=== PATIENT | male | born 1965 | race Caucasian/White ===

== ENCOUNTER 2016-07-12 12:00 | Inpatient (IN) | payer MEDICARE ==
[~2016-07-12] VITALS: Ht 175.3 cm; Wt 96.2 kg
--- NOTE | ~2016-07-12 | OR ---
PATIENT'S NAME: JAN CALIXTO [facility] AGE: 50 Y [address] ROOM: [facility] [place], [place] [address] LOCATION: [facility] ADMIT DATE: 07/12/2016 OR/Procedure Report DISCHARGE DATE: FAMILY PHYSICIAN: CROW DE LA ROSA ATTENDING PHYSICIAN: Gregory Hutchison SURGEON: Gregory Hutchison MD MILK POWDER GRINDER: DATE OF PROCEDURE: 07/12/2016 DIAGNOSIS: Unstable left hip comminuted intertrochanteric fracture. PROCEDURE: Open reduction and internal fixation with locked long TFN nail. ANESTHESIA: General and peripheral nerve block. INDICATION: A 50-year-old gentleman disabled by a paralyzed useless left arm and also chronic low back pain with weakness in his legs, fell last night at home. Simple fall from ground height, no real trauma. Was unable to get up from the floor. Was not having any hip symptoms prior to the fall. At this time, fixation with TFN is indicated. Risks, benefits, and alternatives have been discussed. DESCRIPTION OF PROCEDURE: Mr. Calixto was taken to the operating room. A 2 g of Kefzol was given intravenously for prophylaxis. General anesthetic was administered via endotracheal tube. Transferred to the fracture table. Right leg was placed in the candy cane and protected. Left leg was placed in traction and gently reduced. Fluoroscope confirmed good reduction. Left flank, hip, and thigh were prepared with ChloraPrep and draped sterilely. Fluoroscope was used to identify the axis of the neck and the shaft in both planes. A 4 cm incision was made obliquely above the greater trochanter in line with the femoral canal. Dissection to the iliotibial band. Iliotibial band was divided in line with the femoral canal. Guidewire was driven through the greater trochanter down the shaft. Synthes TFN System was used. Reamer was advanced over the guidewire. A long burton was placed to just above the patella. Reamer was advanced to 14 mm, measured 400 mm. A Synthes TFN left- sided 130-degree 12-mm nail was driven in place. With the fracture reduced, 110 mm helical blade was placed after K-wire and drilling. It was fixed dynamically to allow compression. The bone was noted to be osteoporotic. Distal locking screw was placed in the dynamic slot. Wounds were irrigated. Fluoroscopic images were saved. Iliotibial band was closed with 0 Vicryl simple sutures. Subcutaneous tissues closed with 0 Vicryl, followed by 2-0 Vicryl, followed by gianna. Xeroform was placed over 3 dressings and gauze over the top. Procedure was done without complication. FINDINGS: Intertrochanteric unstable fracture and also osteoporosis. PATIENT'S NAME: JAN CALIXTO [facility] AGE: 50 Y [address] ROOM: [address] [address] LOCATION: [facility] ADMIT DATE: 07/12/2016 OR/Procedure Report DISCHARGE DATE: FAMILY PHYSICIAN: CROW DE LA ROSA ATTENDING PHYSICIAN: Gregory Hutchison To the recovery room in stable condition. In the recovery room, moving both feet. Pulses were stronger in the left foot than what they were preoperatively. Will be protected at bedrest with x-rays pending to clear his low back. GREGORY HUTCHISON MD DPM/koby /[id number] d: 07/12/16 2343 t: 07/17/16 1622, OPERATIVE SUMMARY
--- NOTE | ~2016-07-12 | CON ---
PATIENT'S NAME: JAN CALIXTO [facility] AGE: 50 Y [address] ROOM: [place] [address] LOCATION: [facility] ADMIT DATE: 07/12/2016 Consultation DISCHARGE DATE: FAMILY PHYSICIAN: CROW DE LA ROSA MD ATTENDING PHYSICIAN: Gregory Rangel REFERRING PHYSICIAN: ANTIONETTE NIELSEN MD REQUESTING PHYSICIAN: This is a consult for Dr. Gregory Rangel. HISTORY OF PRESENT ILLNESS: This 50-year-old gentleman is referred for rehabilitation evaluation. He is status post ORIF, left hip comminuted intertrochanteric fracture done on 07/12/[address] Gregory Rangel. Details on record. He is telling me that he lives alone and has a niece that lives close by. However, he is not able to get consistent help. PAST MEDICAL HISTORY: Past history of significance: 1. History of left inguinal hernia repair. 2. Laparoscopic cholecystectomy done on 09/10/2013, details on record. 3. He is with osteoporosis, hypercalciuria. 4. He has history of trauma to the left arm and elbow which left him unable to use the left arm much. 5. He is alert at the present time, oriented, and speech is slow but understandable. PHYSICAL EXAMINATION: VITAL SIGNS: Blood pressure 143/75, temperature 98.1, pulse 95, and respiratory rate 20. He is 5 feet 9 inches tall and weighs 93.7 kg. GENERAL APPEARANCE: He is at the present time weightbearing as tolerated per Ortho. NEUROLOGIC: He is intact. He can control his bowel and bladder. Transfers with minimal assistance of one. MEDICATIONS: He is on the following medications: 1. Flomax. 2. NaCl 0.9%. 3. Zofran. 4. Ferrous sulfate. 5. Diazepam. 6. Lovenox. 7. Fleet Enema p.r.n. 8. Dulcolax p.r.n. PATIENT'S NAME: JAN CALIXTO [facility] AGE: 50 Y [address] ROOM: [place] [address] LOCATION: [facility] ADMIT DATE: 07/12/2016 Consultation DISCHARGE DATE: FAMILY PHYSICIAN: CROW DE LA ROSA MD ATTENDING PHYSICIAN: Gregory Rangel 9. MOM. 10. Benadryl. 11. Ravena. 12. Percocet. 13. MiraLAX. 14. Protonix. 15. Lactinex. 16. Sanctura. 17. Dilaudid. 18. KCl. 19. Vitamin D. 20. Magnesium sulfate. ASSESSMENT AND PLAN: 1. He is able to walk about 5 feet with a danita-walker. 2. He is weightbearing as tolerated with hands-on for safety. 3. I think we will be able to help him to achieve better independence with intensive rehabilitation for about 2 weeks. Please see the orders. 4. I feel that he can benefit from intensive rehabilitation for 2 weeks and then follow up on outpatient basis. All the above was explained to him in detail. He verbalized understanding and agreement with plan of care. MD SUSANA SHERMANS/modl /[id number] d: 07/21/16 1803 t: 07/23/16 0821, CONSULTATION REPORT
--- NOTE | ~2016-07-12 | HP ---
PATIENT'S NAME: JAN CALIXTO [facility] AGE: 50 Y [address] ROOM: [place] [address] LOCATION: [facility] ADMIT DATE: 07/12/2016 History & Physical DISCHARGE DATE: FAMILY PHYSICIAN: CROW DE LA ROSA ATTENDING PHYSICIAN: Gregory Rangel DATE OF SERVICE: CHIEF COMPLAINT: Left hip fracture, fall. HISTORY OF PRESENT ILLNESS: This is a 50-year-old male with history of GERD and no other significant medical history, presents of from [place] after being found to have a fractured left hip. The patient reports that he slipped and fell last night, coming out of the shower at his home and pretty much spent whole night on the floor because he could not get up. He states that he slipped on the mat by the tub. The patient stayed on the floor throughout the night and was found in the morning by family member who helped him to get to the ED in [place] and was found to have a fractured left hip at that time. The patient denies any dizziness, lightheadedness, chest pain, or shortness of either prior to or shortly following the fall. The patient currently complains of moderate amount of pain, rated 6/10. PAST MEDICAL HISTORY: GERD, peripheral neuropathy. FAMILY HISTORY: Has a family history of osteoporosis in the brother. SOCIAL HISTORY: The patient lives at home. Denies any history of alcohol or tobacco use or drugs. REVIEW OF SYSTEMS: 10-point review of systems was conducted and were all negative except as mentioned in the HPI. PHYSICAL EXAMINATION: VITAL SIGNS: Blood pressure 131/71, pulse 92, respiratory rate 17, saturating 97 on room air. GENERAL: The patient is awake, alert, and oriented x3, in mild distress. HEENT: Moist mucous membranes. No scleral icterus or conjunctival pallor noted. HEART: S1, S2. Regular rate and rhythm. PATIENT'S NAME: JAN CALIXTO [facility] AGE: 50 Y [address] ROOM: [address] [address] LOCATION: [facility] ADMIT DATE: 07/12/2016 History & Physical DISCHARGE DATE: FAMILY PHYSICIAN: CROW DE LA ROSA ATTENDING PHYSICIAN: Gregory Rangel LUNGS: Clear to auscultation bilaterally. ABDOMEN: Soft, nontender, nondistended. Positive bowel sounds. NEURO: Grossly nonfocal. SKIN: Bruising noted overlying the abdomen. Baseline EKG done and reviewed. ASSESSMENT AND PLAN: 1. Left hip fracture secondary to mechanical fall. Plan for ORIF later today by Dr. Rangel. The patient overall at moderate risk for perioperative complications, but benefit of surgery outweighs the risk of the procedure. 2. Fall, mechanical. He had been on the floor for a while. We will check CPK level. 3. Gastroesophageal reflux disease. Continue his home PPI therapy. 4. Deep venous thrombosis prophylaxis per Ortho, following surgery. MD JOCEILNE STEWARD/koby /[id number] D: [id number] T: [id number] HISTORY & PHYSICAL
--- NOTE | ~2016-07-12 | DS ---
PATIENT'S NAME: JAN CALIXTO [facility] AGE: 50 Y [address] ROOM: [address] [address] LOCATION: [place] ADMIT DATE: 07/12/2016 Discharge Summary DISCHARGE DATE: 07/23/2016 FAMILY PHYSICIAN: CROW DE LA ROSA MD ATTENDING PHYSICIAN: Gregory Rangel FINAL DIAGNOSES: 1. Postoperative adynamic ileus. 2. Urinary retention. 3. Acute blood loss anemia. 4. Hypokalemia. 5. Left hip fracture, status post open reduction and internal fixation with Dr. Gregory Rangel. 6. Gastroesophageal reflux disease. 7. Left arm weakness secondary to previous trauma. 8. Acute hypoxic respiratory failure. Please see the history and physical dictated by Dr. Gregory Rangel and consultation provided by Dr. Carranza for details of admission. PROCEDURE: On July 12, open reduction and internal fixation with long TFN nail to the left hip fracture. LABORATORY DATA: Sodium on admission was 142, it remained stable at 144 at discharge; potassium on admission was 4.1, got as low as 2.9 on july 19, most prior to discharge was 3.6; chloride on admission was 108, discharge 112; BUN on admission was 16, discharge 6; and creatinine on admission was 1, discharge 0.7. Prealbumin is on admission was 19. Magnesium on July 19 was 1.9, most prior to discharge was 2.1. Albumin on admission was 3.3, most prior to discharge was 2. White blood cell count on admission was 7.6 with a hemoglobin of 11.3, hematocrit 34.8, platelet count 137; most prior to discharge, white blood cell count 4.9, hemoglobin 8.7, hematocrit 26.3, and platelet count 241. MICROBIOLOGY DATA: None. RADIOLOGY DATA: MRI of the lumbar spine on July 13 done for back pain showed chronic degenerative changes, but there was no evidence of acute fracture. Chest x-ray on July 14 showed atelectasis. Abdominal x-ray done on July 15 was suggestive of an ileus, we did see any evidence of obstruction. Spiral-cut PE protocol done on July 15 was negative for any pulmonary embolism. A CT scan of the abdomen and pelvis done on July 18 did confirm nonobstructive adynamic ileus. HOSPITAL COURSE: The patient was admitted by Dr. Rangel with a diagnosis of a hip fracture. Dr. Carranza was asked to see the patient for PATIENT'S NAME: JAN CALIXTO [facility] AGE: 50 Y [address] ROOM: [id number] [place], [place] [address] LOCATION: [place] ADMIT DATE: 07/12/2016 Discharge Summary DISCHARGE DATE: 07/23/2016 FAMILY PHYSICIAN: CROW DE LA ROSA MD ATTENDING PHYSICIAN: Gregory Rangel preoperative evaluation. It was felt that this fracture did need to go to the OR to be surgically stabilized. It was felt that the patient was an adequate candidate to proceed with the surgery. Postoperatively for details of operation, please see Dr. Rangel's operative note. Postoperatively, he was admitted back to the floor. He was given pain medication. He did complain of significant pain, so an MRI of his spine was obtained to rule out foot fracture. The patient was nauseated and had urinary retention, a Walker catheter needed to be placed. He also developed acute hypoxic respiratory failure. Spiral-cut CT scan was done to rule out a pulmonary embolism did return negative. There was concern that he did have an ileus and an x-ray was most consistent with an ileus. Decision was made to make him n.p.o. We did give him Dulcolax suppositories trying to stimulate his bowels. We did let him start having sips which he did tolerate. He, however, failed to have significant bowel movements. A CT scan was done on the to rule out an obstruction, it was negative. We continued to replace his potassium and magnesium as necessary. We continued to let him have clear liquids and continued to stimulate his bowels. For the urinary retention, we did keep a Walker catheter in place. He was able to pass some flatus and the decision was to start his diet and then advance it. Dr. Melgar was asked to see him to see if he is a candidate for rehab. We attempted to remove his Walker catheter, but unfortunately he was unable to void and the catheter needed to be replaced. The patient was felt to be stable for discharge and discharged to inpatient rehab on the . DISCHARGE INSTRUCTIONS: Have PT and OT. Keep his saturations greater than 90%. MEDICATIONS: 1. Dulcolax 10 mg per rectum every 8 hours. 2. Lovenox 30 mg subcu twice daily. 3. Feosol 325 mg twice daily. 4. Lactinex 1 tab daily. 5. Protonix 40 mg daily. 6. MiraLAX 17 g daily. 7. Lyrica 75 mg twice daily. 8. Flomax 0.8 mg at bedtime. 9. Vitamin D 19706 units weekly. 10. [place] 5/325 one every 4 hours as needed for pain. 11. Dulcolax as needed for constipation. 12. Valium 5 mg every 4 hours as needed for muscle spasm. 13. Benadryl 25-50 mg every 6 hours as needed for itching. 14. Milk of magnesia 30 mL as needed for constipation. 15. Fleet enema as needed for constipation. OVERALL PROGNOSIS: At discharge was fair. PATIENT'S NAME: JAN CALIXTO [facility] AGE: 50 Y [address] ROOM: [place] [address] LOCATION: [place] ADMIT DATE: 07/12/2016 Discharge Summary DISCHARGE DATE: 07/23/2016 FAMILY PHYSICIAN: CROW DE LA ROSA MD ATTENDING PHYSICIAN: Gregory Rangel MD KENDY WEINER/koby /[id number] d: 07/24/16 0009 t: 07/31/16 1643, DISCHARGE SUMMARY
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
[2016-07-12] MEDS ORDERED: PRILOSEC20 MG PO (13:47)
[2016-07-12] MEDS ORDERED: MIRALAX PO527 GM/BOT PO (13:48)
[2016-07-12] MEDS ORDERED: TOVIAZ8 MG PO (13:48)
[2016-07-12] MEDS ORDERED: LYRICA 75MG CAP75 MG PO (13:48)
[2016-07-12] MEDS ORDERED: NORCO 5-325 TA1 EACH PO (13:49)
[2016-07-12] MEDS ORDERED: ALEVE220 MG PO (13:49)
[2016-07-12] MEDS ORDERED: PROBIOTIC1 EAC1 PO (13:49)
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
[2016-07-12 15:01] LABS: ALBUMIN 3.3 gm/dL (3.5-5.0); ANION GAP 14.1 (10.0-19.0); BLOOD UREA NITROGEN 16 mg/dL (6-24); CHLORIDE 108 mMol/L (96-110); CO2 24 mMol/L (22-32); ESTIMATED GFR (MDRD EQUATION) > 60; PHOSPHORUS 3.3 mg/dL (2.5-4.9); POTASSIUM 4.1 mMol/L (3.7-5.1); SODIUM 142 mMol/L (135-145)
--- NOTE | 2016-07-12 17:09 | NUR ---
Significant Event:PT IS AAOX3. C/O NUMBNESS AND TINGLING TO LEFT LEG. CLEAR LUNG SOUNDS ON RA ACTIVE BS. LAST BM YESTERDAY. UNABLE TO PLACE LEE. PIV TO R) AC. LR RUNNING AT 125. WENT DOWN FOR SURGERY AT 1505. MULTIPLE SKIN ISSUES. SEE ADMISSION SHEET. Follow up:
--- NOTE | 2016-07-13 04:30 | NUR ---
Significant Event: A/O x3. Complains of N/T to left leg. Moves all extremities spontaneously and to command. Pain with movement to left leg. 1+ pulses palpated in lower extremities bilaterally. LEft leg started shift out cool but by end of shift was warm. VSS on 1L of O2. Walker placed at 2044. IV to right AC saline locked. multiple skin issues. Pain controlled best with valium. Dressing to left hip c/d/i. Has ice resting on it. Follow up:
[2016-07-13 04:46] LABS: BASOPHIL % 0.3 %; EOSINOPHIL % 0.1 %; HEMATOCRIT 34.8 % (37.0-53.0); HEMOGLOBIN 11.3 g/dL (12.0-17.0); IMMATURE GRANULOCYTE # 0.1 K/uL (0.0-0.3); IMMATURE GRANULOCYTE % 0.7 %; LYMPHOCYTE # 1.2 K/uL (0.8-4.0); LYMPHOCYTE % 15.2 %; MCH 29.2 pg (27.0-34.0); MCHC 32.5 gm/dL (32.0-36.5); MCV 89.9 fl (83.0-98.0); MONOCYTE % 12.8 %; MPV 11.5 fl (9.4-12.4); NEUTROPHIL # (ANC) 5.4 K/uL (1.4-9.0); NEUTROPHIL % 70.9 %; NRBC % 0 /100WBC (0-0.00); PLATELET COUNT 137 K/uL (150-450); RBC 3.87 M/uL (4.00-6.00); RDW-CV 13.5 % (11.9-14.6); WBC 7.6 K/uL (4.0-11.0)
--- NOTE | 2016-07-13 15:45 | NUR ---
Significant Event: pt transfer from [facility] at 1220. FX L hip, ORIF done 07/12. Dressing to L hip intact, can be changed PRN. [place] patent, orders to keep loomis for today. Bedrest for now until Claire says otherwise. Had MRI spine this afternoon. CSM checks Q2hr. Saline locks to R fa. PRN [place] at 1308, PNR Valium at 1530. Tolerating regular diet. H/H ordered Q12hr. Follow up: continue to monitor
[2016-07-13 16:44] LABS: HEMATOCRIT 33.7 % (37.0-53.0); HEMOGLOBIN 11.3 g/dL (12.0-17.0)
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
[2016-07-14 04:44] LABS: HEMATOCRIT 32.1 % (37.0-53.0); HEMOGLOBIN 10.4 g/dL (12.0-17.0)
--- NOTE | 2016-07-14 15:29 | NUR ---
Significant Event: PT ALERT AND ORIENTED. UP IN THE RECLINER THIS AFTERNOON WITH 2 ASSIST BY PT. PLEASE USE THE LIFT TO GO BACK TO BED. PT IS SLIGHTLY TACKY AND AM TRYING TO WEAN O2. ENCOURAGE INCENTIVE SPIROMETER. TEMP 99.8 AMD 99.4 TODAY. LEE REMOVED AT 1100. NO VOID YET WILL UPDATE YOU. TAKES NORCO AND VALIUM FOT PAIN. Follow up:
[2016-07-14 16:05] LABS: HEMATOCRIT 33.5 % (37.0-53.0); HEMOGLOBIN 11.1 g/dL (12.0-17.0)
--- NOTE | 2016-07-15 03:32 | NUR ---
Pt A&Ox3. VS stable, placed on 2L O2. CSM and neurochecks intact. Dressing to left hip CDI. Pt nauseated for much of shift, zofran given with relief. No emesis this shift. Diluadid and valium given x1 each for pain control. Pt unable to void after loomis removed, was straight cathed x1 at 0300 per nursing protocol. D5 at 75ml/hr to left AC. Pleasant and cooperative.
[2016-07-15 04:21] LABS: BASOPHIL % 0.4 %; EOSINOPHIL % 0.5 %; HEMATOCRIT 32.3 % (37.0-53.0); HEMOGLOBIN 10.8 g/dL (12.0-17.0); IMMATURE GRANULOCYTE # 0.1 K/uL (0.0-0.3); IMMATURE GRANULOCYTE % 0.7 %; LYMPHOCYTE % 12.5 %; MCH 29.3 pg (27.0-34.0); MCHC 33.4 gm/dL (32.0-36.5); MCV 87.8 fl (83.0-98.0); MONOCYTE # 0.9 K/uL (0.0-1.0); MONOCYTE % 11.6 %; MPV 10.9 fl (9.4-12.4); NEUTROPHIL # (ANC) 5.6 K/uL (1.4-9.0); NEUTROPHIL % 74.3 %; NRBC % 0 /100WBC (0-0.00); PLATELET COUNT 176 K/uL (150-450); RBC 3.68 M/uL (4.00-6.00); RDW-CV 13.5 % (11.9-14.6); WBC 7.6 K/uL (4.0-11.0)
[2016-07-15 04:41] LABS: ALBUMIN 2.5 gm/dL (3.5-5.0); ANION GAP 14.9 (10.0-19.0); BLOOD UREA NITROGEN 17 mg/dL (6-24); CALCIUM 7.8 mg/dL (8.5-10.5); CHLORIDE 102 mMol/L (96-110); CO2 23 mMol/L (22-32); CPK 217 IU/L (35-332); CREATININE 0.9 mg/dL (0.6-1.3); ESTIMATED GFR (MDRD EQUATION) > 60; POTASSIUM 3.9 mMol/L (3.7-5.1); SODIUM 136 mMol/L (135-145)
--- NOTE | 2016-07-15 12:25 | NUR ---
1225 Introduced self/role to patient. He plans to go to either a [facility] or [facility] for some recovery time but thought I better call his sister Criss for location of that rehab. Wrote my name on his marker board. 1330 Called his sister/POA Criss #[phone]. She would prefer [facility] or [facility]. Doctors out of [place] with Dr. Oksana Pat. We talked about the financial piece and co-insurance days after day 20. She will let their brother know because he handles the financial side. 0136 Spoke to patients nurse Doug, patient is WBAT. Co-worker America, in care management, started referral for me to [place].
--- NOTE | 2016-07-15 15:16 | NUR ---
Talked with Rayne, social human services assistants in care management. Pt would like to go to [facility] or [facility] if [facility] can't accept him. Oksana Pat is his primary care provider in [place]. I called [facility] and [facility] Radha [phone] and faxed referral to [phone]. She will let Rayne know if they can accept and who would be following pt at [facility].
--- NOTE | 2016-07-15 19:24 | NUR ---
Significant Event: Alert & oriented. VSS, afebrile, wean to 1 L O2. Refused oral meds due to fear of emesis. Zofran given. No emesis this shift. Walker placed due to retention. Hypoactive bowels, gave suppository, multiple liquid stools. Full lift. Pleasant & cooperative with cares. Follow up: CT done for PE protocol.
--- NOTE | 2016-07-16 04:05 | NUR ---
Significant Event: A/O X 3, FORGETS. IV FLUIDS INFUSING. 02 ON 1L NASAL CANNULA. DRSG LEFT HIP DRY-INTACT DRY DRAINAGE SMALL AMOUNT. ZOFRAN IV FOR NAUSEA 0, WITH RELIEF. LEE CATHETER EMPTIED 550ML URINE. PAIN RATING 5/10. BEEN REPOSITIONED IN BED. ICE BAG TO LEFT HIP. PASSING LITTLE FLATUS. TAKEN ICE CHIPS AND SIPS IN. OCCASIONAL NUMB-TINGLING LEFT LEG. Follow up:
--- NOTE | 2016-07-16 11:00 | NUR ---
1100 Jen from [facility] called. Had a few questions, does not have Sodium Phosphate/Biphos Trospium Cloride in their pharmacy so would need to be changed to an equivalent drug or brought from home. Will keep then updated on possible discharge date. 1215 Spoke to Yary La, patient might be ready the end of week, still ruling out some things. 1220 Left a message for Jen that we are looking at the end of week probably.
--- NOTE | 2016-07-16 12:25 | NUR ---
A-NUTRITION F/U S/P L)HIP FX REPAIR. C/O NAUSEA; IV ZOFRAN GIVEN WITH RELIEF LABS: NA 136, K+ 3.9, GLU 118, BUN 17, STEAM ROOM ATTENDANT 0.9, ALB 2.5 MEDS: ZOFRAN, FEOSOL DIET RX: NPO (LUNCH ON 07/15). TAKING ICE CHIPS AND SIPS WITHOUT DIFF. EST NUTR NEEDS: 0955-6020 KCALS AND 93-112 GM PROTEIN D-AT NUTRITION RISK W/INCREASED PROTEIN NEEDS R/T HEALING AEB L)HIP FX. ALSO AT NUTRITION RISK W/INADEQUATE ORAL INTAKE R/T ALTERED GI FXN AEB N/V. I-WILL START ENSURE CLEAR TID, WHEN DIET ADVANCED M/E-GOAL: PT WILL TOLERATE ORAL DIET 1)F/U DIET RX, GI, AND POC IN 3-4 DAYS 2)ASSIST NEEDED
--- NOTE | 2016-07-16 13:28 | NUR ---
STUDENT NURSE CHART REVIEWED BY FREIGHT REPRESENTATIVE SUSI OTERO RN BSN
--- NOTE | 2016-07-16 18:09 | NUR ---
Significant event: Patient is alert and oriented x3. Is forgetful at times. VSS. On 1 liter of O2 per NC. DRSG to left hip intact with scant amt of serosanguinous drainage. Percocet last given at 1115 amd Valium given at 1400. Is on ice chips and only sips of clears. He has an ileus and is instructed to take it very slow. Has worked with PT today. Is a two assist with walker and gait belt. Cooperative with cares.
--- NOTE | 2016-07-17 02:50 | NUR ---
Significant Event: Patient alert and oriented X4. Up with 2-3 assist or full lift. Neuro checks adequate. Pain controlled with norco and valium. Slept well this shift. Up in chair TID. IV to R) wrist running NS at 70ml/hr. On room air, but orders to keep sats above 90%. Fell on 07/11/16 at home. Can be forgetful. Dressing to L) hip some shadow drainage noted, but not saturated. Was in accident, and L) arm doesn't move well. Numbness and tingling to L) leg. Encourage IS. Vitals stable. Tachy at times. Afebrile. Refused repositioning. Follow up: Monitor pain/dressing
--- NOTE | 2016-07-17 17:55 | NUR ---
Patient is alert and oriented, VSS, on room air. 2-3 assist with walker and GB. Dressings were changed today to island barriers. Clear liquid diet. Wants a suppository until he has a BM, will assist back to bed to give before shift change.
--- NOTE | 2016-07-18 04:24 | NUR ---
Significant Event: Patient alert and oriented X4. Up with 3 heavy assist per report. Did not get up this shift. Reposition as patient allows, refuses at times. Dressing to L) hip intact with shadow drainage on it. Ice to L) hip. On clear liquid diet. Hypoactive BS to L) quadrant and patient reports some rumbling. Q8hour suppository until BM. Pain contolled well with valium last given around 0235. Rested well this shift. Walker patent. IV to R) wrist running NS at 70ml. Estelline given with bedtime meds. Cooperative wtih cares. VSS and on room air. Tachy at times in low 100s. Follow up: Monitor dressing.
[2016-07-18 10:32] LABS: CREATININE 0.7 mg/dL (0.6-1.3); ESTIMATED GFR (MDRD EQUATION) > 60
--- NOTE | 2016-07-18 12:00 | NUR ---
1200 Faxed updates to [facility] #[phone]. 1330 Spoke to patients nurse Maya - does not anticipate a discharge over the weekend.
--- NOTE | 2016-07-18 17:19 | NUR ---
Walker cares completed today by Amy.
--- NOTE | 2016-07-18 17:27 | NUR ---
Patient is alert and oriented, VSS, on room air. 3 assist with walker, or full lift. Up in the chair currently. Is NPO. Had a CT of the abdomen today, results were either a non-obstructive adynamic ileus or a megacolon. Walker is patent with 550ml out. IV to L) wrist infusing 70ml/hr.
--- NOTE | 2016-07-19 03:59 | NUR ---
Significant Event: Patient is alert and oriented x 3. VSS on room air. Up with 3 assist/total lift. Reposition when patient allows, refused at times. Dressings x 3 to left hip are dry and intact. BM x 2 this shift. NPO. Walker intact. 600 mls out this shift. Complains of minimal pain to abdomen. Right wrist IV with NS running at 70 ml/hr. Patient is pleasant and cooperative with cares. Follow up:
[2016-07-19 06:07] LABS: HEMATOCRIT 26.3 % (37.0-53.0); HEMOGLOBIN 8.7 g/dL (12.0-17.0); MCH 29.8 pg (27.0-34.0); MCHC 33.1 gm/dL (32.0-36.5); MCV 90.1 fl (83.0-98.0); MPV 10.4 fl (9.4-12.4); RBC 2.92 M/uL (4.00-6.00); RDW-CV 13.7 % (11.9-14.6); WBC 4.9 K/uL (4.0-11.0)
[2016-07-19 06:17] LABS: PLATELET COUNT 241 K/uL (150-450)
[2016-07-19 06:23] LABS: BLOOD UREA NITROGEN 9 mg/dL (6-24); CALCIUM 7.5 mg/dL (8.5-10.5); CHLORIDE 109 mMol/L (96-110); CO2 24 mMol/L (22-32); CREATININE 0.6 mg/dL (0.6-1.3); ESTIMATED GFR (MDRD EQUATION) > 60; MAGNESIUM 1.9 mg/dL (1.3-2.6); PHOSPHORUS 2.4 mg/dL (2.5-4.9); SODIUM 143 mMol/L (135-145)
[2016-07-19 06:34] LABS: ALBUMIN 1.9 gm/dL (3.5-5.0); ANION GAP 12.9 (10.0-19.0); POTASSIUM 2.9 mMol/L (3.7-5.1)
[2016-07-19 06:53] LABS: ABSOLUTE NEUTROPHIL CT (ANC) 3.4 K/uL (1.4-9.0); BANDED NEUTROPHIL # 0.1 K/uL (0.0-0.1); BANDED NEUTROPHILS % 2 %; LYMPHOCYTE # 0.8 K/uL (0.8-4.0); LYMPHOCYTE % 16 %; MONOCYTE # 0.5 K/uL (0.0-1.0); SEGMENTED NEUTROPHIL # 3.3 K/uL (1.4-9.0); SEGMENTED NEUTROPHIL % 67 %
--- NOTE | 2016-07-19 14:06 | NUR ---
Following patient for CM Rayne today. Phone call from Vee at [facility] wanting an update on patient and potential discharge date. I contacted Vee at [phone] and informed her that patient has a new diagnosis of possible ileus so he will likely be here through the weekend with potential discharge early next week. Rayne is to contact Vee at [facility] on Friday as they are planning on accepting patient. CM will continue to follow.
--- NOTE | 2016-07-19 15:27 | NUR ---
Patient is alert and oriented, VSS, on room air. Up with 2-3 assist or total lift. IV to R) wrist infusing NS at 70ml/hr. Dressing does have some dried blood around the IV site but is not leaking. Dilaudid IV was given x1 this morning before PT and he states it was helpful. He is NPO still. Bowel sounds her tympanic this morning. Slight temp this afternoon at 99.5 but he had a bunch of blankets on, will recheck shortly. Island dressings x3 to the L) hip.
--- NOTE | 2016-07-19 16:14 | NUR ---
A-NUTRITION F/U 07/18 CT RESULTS WERE EITHER A NON-OBSTRUCTIVE ADYNAMIC ILEUS OR MEGACOLON MINIMAL ABD PAIN. NS RUNNING AT 70 ML/HR. (+)BM TODAY LABS: NA 143, K+ 2.9, GLU 86, BUN 9, PHOTOVOLTAIC POWER SYSTEMS ENGINEER 0.6, ALB 1.9 DIET RX: NPO. PRIOR TO NPO PT WAS ON CLEAR LIQUIDS W/ 50-75% INTAKE. EST NUTR NEEDS: 8607-5242 KCALS AND 93-112 GM PROTEIN D-AT NUTRITION RISK W/INADEQUATE NUTRIENT INTAKE R/T ALT. GI FXN AEB NPO STATUS, CT RESULTS. PT ALSO AT NUTRITION RISK W/INCREASED NUTRIENT NEEDS R/T RECENT L)HIP FX. I-IF PO DIET UNABLE TO BE RESUMED, RECOMMEND STARTING PARENTERAL NUTRITION. RECOMMEND 100 ML/HR PPN W/250 ML 20% LIPIDS DAILY. THIS WILL PROVIDE 1724 KCALS AND 102 GM PROTEIN AND MEET 93% OF THE LOW END OF KCAL NEEDS AND 100% OF PROTEIN NEEDS. M/E-GOAL: RESUME PO DIET, IF MEDICALLY INDICATED OR START PARENTERAL NUTRITION IF PO DIET CAN NOT BE RESUMED. 1)F/U GI FXN AND POC IN 2-3 DAYS 2)ASSIST NEEDED
--- NOTE | 2016-07-19 16:40 | NUR ---
IF UNABLE TO RESUME ORAL DIET, CONSIDER PARENTERAL NUTRITION. IF DESIRED, RECOMMEND 100 ML/HR PPN WITH 250 ML 20% LIPIDS DAILY.
--- NOTE | 2016-07-20 04:01 | NUR ---
Patient alert and oriented, very pleasant and cooperative, has three island dressing to the left hip, top dressing changed, dressings are clean dry and intact, is two to three assist with repositioning uses full body lift, had both magnesium and postassium infusions tonight was placed on tele, had 9 beats of SVT EKG done, tele to stay on for now, suspected ileus bowls sound in lower quadrants hypoactive, slightly destended abdomen NPO,
[2016-07-20 05:38] LABS: ANION GAP 15.3 (10.0-19.0); BLOOD UREA NITROGEN 7 mg/dL (6-24); CHLORIDE 111 mMol/L (96-110); CO2 21 mMol/L (22-32); CREATININE 0.6 mg/dL (0.6-1.3); ESTIMATED GFR (MDRD EQUATION) > 60; MAGNESIUM 1.9 mg/dL (1.3-2.6); PHOSPHORUS 2.1 mg/dL (2.5-4.9); POTASSIUM 3.3 mMol/L (3.7-5.1); SODIUM 144 mMol/L (135-145)
[2016-07-20 05:39] LABS: CALCIUM 7.3 mg/dL (8.5-10.5)
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
[2016-07-21 05:53] LABS: BLOOD UREA NITROGEN 6 mg/dL (6-24); CHLORIDE 114 mMol/L (96-110); CO2 22 mMol/L (22-32); CREATININE 0.6 mg/dL (0.6-1.3); ESTIMATED GFR (MDRD EQUATION) > 60; MAGNESIUM 1.9 mg/dL (1.3-2.6); POTASSIUM 3.4 mMol/L (3.7-5.1)
[2016-07-21 05:54] LABS: ALBUMIN 1.9 gm/dL (3.5-5.0); ANION GAP 13.4 (10.0-19.0); CALCIUM 7.3 mg/dL (8.5-10.5); PHOSPHORUS 1.9 mg/dL (2.5-4.9); SODIUM 146 mMol/L (135-145)
--- NOTE | 2016-07-21 07:10 | NUR ---
Significant Event: Pt alert and oriented. Pleasant and cooperative with cares. Has three island dressings cl/dry/intact to left hip. Repositioned q 2 hours. Tolerated 1/2 of clear liq dinner. Pt had large clear liquid bm with lots of gas early in the shift. Pt would like his "pain shot" prior to pysical therapy. Aaron to [facility] Follow up:
--- NOTE | 2016-07-21 15:43 | NUR ---
Significant Event: Drsg to lt hip/thigh D&I. Ice to incisions. up with PT/OT, returned to bed with lift. tele called about 1230 and pt had 8 beats of SVT rates 150's then returned to normal. Had 1 norco at 0755, 1 percocet at 1135 and 1417. Tolerated clears for bkst and lunch, full liquid ordered for supper. Plan to go to [facility]. Follow up:
--- NOTE | 2016-07-22 04:54 | NUR ---
Significant Event: PT alert and oriented. Repositioned q 2 hours. Pt has still not voided since loomis removal. Bladder scanned at 0400 for 420mls, pt does not feel need to void or uncomfortable at this time. Pt has not had a BM on this shift, denied passing flatus. VSS. Follow up: Follow nurse driven loomis removal protocol.
[2016-07-22 05:32] LABS: HEMATOCRIT 27.2 % (37.0-53.0); HEMOGLOBIN 8.8 g/dL (12.0-17.0)
[2016-07-22 05:51] LABS: ANION GAP 10.3 (10.0-19.0); BLOOD UREA NITROGEN 8 mg/dL (6-24); CHLORIDE 110 mMol/L (96-110); CO2 26 mMol/L (22-32); CREATININE 0.6 mg/dL (0.6-1.3); ESTIMATED GFR (MDRD EQUATION) > 60; MAGNESIUM 2.1 mg/dL (1.3-2.6); PHOSPHORUS 2.5 mg/dL (2.5-4.9); POTASSIUM 3.3 mMol/L (3.7-5.1); SODIUM 143 mMol/L (135-145)
[2016-07-22 05:57] LABS: CALCIUM 7.4 mg/dL (8.5-10.5)
--- NOTE | 2016-07-22 09:35 | NUR ---
0935 Vee from [facility] called for an update, will have to call her back. 0955 Spoke to Yary Griffin-LINDA, patient can go to [facility]. 1211 left a message on Vee phone at [facility] that [facility] maybe an possibility. 1300 Spoke to Barbra on [facility]. Plan for admission there Friday at 0900. 1330 Updated Yary Griffin - she stated patient could even go tomorrow. 1335 left a message for Barbra. 1340 Updated patient about going to [facility] tomorrow. 1355 Barbra called back and tomorrow was fine. [address] Dominique. Charge Nurse Yary made aware. 1410 Called patients sister Criss. 1430 Patients nurse Vianey notified. Packet started, orders on the chart.
--- NOTE | 2016-07-22 11:06 | NUR ---
A-NUTRITION F/U (+)BM. 07/20 CLEAR LIQUIDS STARTED; PT TOLERATED WITHOUT DIFF. FULL LIQUIDS STARTED 07/21 AT DINNER; INTAKE WAS 75%. LABS: NA 143, K+ 3.3, GLU 93, BUN 8, OUTCOME ANALYST 0.6, ALB 2.0 NO NEW MEDS DIET RX: FULL LIQUIDS; PO INTAKE IS GOOD. APPEARS TO BE TOLERATING WITHOUT DIFFICULTY EST NUTR. NEEDS: 9130-0612 KCALS AND 93-112 GM PROTEIN D-REMAINS AT NUTRITION RISK W/INADEQUATE NUTRIENT INTAKE R/T ALTERED GI FXN AEB NPO, LIQUID DIET, CT RESULTS. ALSO AT NUTR. RISK W/INCREASED PROTEIN NEED R/T HEALING AEB L)HIP FX AND REPAIR. I-ADD ENSURE ENLIVE TID W/MEALS, TO PROVIDE ADDITIONAL NUTRIENTS. M/E-GOAL: PO INTAKE 50-75% BY NEXT F/U 1)F/U PO INTAKE, DIET RX, SUPPLEMENT, GI, AND POC IN 3-5 DAYS 2)ASSIST NEEDED
--- NOTE | 2016-07-22 17:40 | NUR ---
AAOx3. Cooperative with cares. Up w/2 assist GB, and hemiwalker. Intermittent IV K+ today to R)outer arm IV. Also has RFA PIV s/l'd. Tolerating full liquids ok; going slow. Ice chips. Tympanic bowels, hypo in LLQ. Dressings x3 to L)hip incisions. VSS, afebrile, on RA. Transfer to [facility] @0900 tomorrow (Friday). Straight cathed today for 575ml. Will bladder scan @[address] cath if more than 200ml. To give suppository also. No flatus, no BM.
--- NOTE | 2016-07-23 03:34 | NUR ---
Significant Event: Pt alert and Oirneted x3. Cooperative with cares. turn q2hr. heavey 2 assist. IV in right forarm and right otter elbow SL. RA. Ice to left hip. dressings x3 C/D/I. complaints of abdominal pain denies wanting pain medication. scheduled suppositorys. pt did have 2 loose small BM. Pt unable to void notified loomis placed. 800ml clear yellow urine. pt states relief. VSS. tele did call with HR up to 150's and back down. notified and continue to monitor. pt will go [facility] today at 0900. Follow up:
[2016-07-23 05:42] LABS: ANION GAP 10.6 (10.0-19.0); BLOOD UREA NITROGEN 6 mg/dL (6-24); CALCIUM 7.6 mg/dL (8.5-10.5); CHLORIDE 112 mMol/L (96-110); CO2 25 mMol/L (22-32); CREATININE 0.7 mg/dL (0.6-1.3); ESTIMATED GFR (MDRD EQUATION) > 60; PHOSPHORUS 2.8 mg/dL (2.5-4.9); POTASSIUM 3.6 mMol/L (3.7-5.1); SODIUM 144 mMol/L (135-145)
--- NOTE | 2016-07-23 08:50 | NUR ---
0850 Called [facility], made sure still planning on [facility] today at 0900? Nursing said yes, working on the paperwork.
--- NOTE | 2016-07-23 12:27 | NUR ---
PT. A/O AND COOPERATIVE. DENIES PAIN. THREE DRESSING SITES LEFT HIP D/I. RIGHT INNER ARM IV D/C'D PER TRANSFER. RIGHT LATERAL FA IV S/L LEFT FOR TRANSFER. TRANSFERRED TO WHEELCHAIR WITH TWO ASSIST AND WALKER. MOVES LEFT FOOT POORLY AND HOPS TO MOVE. ATE BREAKFAST WELL. NO STOOLS THIS MORNING. LEE DRAINING CLEAR HIMANSHU URINE. ON FULL LIQUID DIET. NO PAIN MEDS GIVEN.
== END 2016-07-23 10:20 | disposition disaster alternative care site (69) | DRG 956 ==
LOC: GMSU 12:33 → GNTU 12:33 → GMSU 07-13 12:15
PROVIDERS: Internal Medicine; Physician Assistant; Student in an Organized Health Care Education/Training Program; ADMIT Orthopaedic Surgery
PROC: 0QS736Z Reposition Left Upper Femur with Intramedullary Internal Fixation Device, Percutaneous Approach (ICD-10-PCS; principal; 2016-07-12)
DX: S72.142A Displaced intertrochanteric fracture of left femur, initial encounter for closed fracture (principal); T79.6XXA Traumatic ischemia of muscle, initial encounter; J96.01 Acute respiratory failure with hypoxia; G81.94 Hemiplegia, unspecified affecting left nondominant side; D62 Acute posthemorrhagic anemia; K91.3 Postprocedural intestinal obstruction; M81.0 Age-related osteoporosis without current pathological fracture; E83.52 Hypercalcemia; G62.9 Polyneuropathy, unspecified; W19.XXXA Unspecified fall, initial encounter; K21.9 Gastro-esophageal reflux disease without esophagitis; M54.9 Dorsalgia, unspecified; G89.29 Other chronic pain; R33.9 Retention of urine, unspecified; R00.0 Tachycardia, unspecified; E87.6 Hypokalemia; E55.9 Vitamin D deficiency, unspecified; Z82.49 Family history of ischemic heart disease and other diseases of the circulatory system
CPT/HCPCS: C1713; J0690; J1170; J1650; J2001; J2175; J2250; J2405; J3010; J3360; J3475; J3480; J7030; J7050; J7060; J7120; Q0162; Q9967

== ENCOUNTER 2016-07-23 10:21 | Inpatient (IN) | payer MEDICARE ==
[~2016-07-23] VITALS: Ht 175.3 cm; Wt 93.8 kg
--- NOTE | ~2016-07-23 | DS ---
PATIENT'S NAME: JAN CALIXTO [facility] AGE: 50 Y [address] ROOM: [address] [place], [place] [address] LOCATION: [facility] ADMIT DATE: 07/23/2016 Discharge Summary DISCHARGE DATE: 08/09/2016 FAMILY PHYSICIAN: CROW DE LA ROSA MD ATTENDING PHYSICIAN: Rubén Gomez This 50-year-old gentleman was admitted to rehab unit at [facility] on 07/23/2016, is discharged to [place], [place] on 08/09/2016. He was admitted with unstable gait, dependent activities of daily and self- care status post left hip fracture intertrochanteric, status post ORIF done on 07/12/2016. Details on record. He is at the present time alert and oriented. Vitals are as follows. Blood pressure 113/62, temperature 98.2, pulse 84, and respirations 16. He can ambulate with platform wheeled walker for 80 feet x1 with standby [employer] assistant manager. He is to continue with PT/OT on a regular basis while there and I will see him in [address] Obed Rangel will see him as he sees fit. He must follow with his family physician as soon as possible. He is on the following medications: 1. Lactinex 1 tablet p.o. daily. 2. Claritin 10 mg p.o. daily. 3. Protonix 40 mg p.o. at 7 a.m. 4. MiraLax 17 grams rectally as needed. 5. Lyrica 75 mg p.o. daily. 6. Xarelto 15 mg daily through 08/15/2016 and thereafter Xarelto 20 mg for another 6 weeks. 7. Flomax, depending on the family physician's decision. 8. Flomax 0.8 mg p.o. daily. 9. Vitamin D 50,000 unit capsule on Friday. 10. Tylenol 650 q.6 hours, 36 of them. Do not exceed acetaminophen 4 grams q.24 hours. 11. Dulcolax suppository 10 mg rectally q.12 hours as needed. 12. Tums 1000 mg q.4 to 6 hours as needed. 13. Valium 5 mg p.o. q.4 hours, 36 and renewal per family physician. 14. Benadryl 25 to 50 mg p.o. q.6 hours as needed. 15. MOM 30 mL as needed p.o. 16. Fleet enema 133 mL as needed. PATIENT'S NAME: JAN CALIXTO [facility] AGE: 50 Y [address] ROOM: [place] [address] LOCATION: [facility] ADMIT DATE: 07/23/2016 Discharge Summary DISCHARGE DATE: 08/09/2016 FAMILY PHYSICIAN: CROW DE LA ROSA MD ATTENDING PHYSICIAN: Rubén Gomez FINAL DIAGNOSES: 1. Unstable gait. 2. Dependent activities and self-care. 3. Status post open reduction and internal fixation of the left hip on 07/12/2016 secondary to a falling incident. 4. Benign prostatic hypertrophy. 5. Gastroesophageal reflux disease. 6. Anemia. 7. Osteoporosis. 8. At the risk of deep venous thrombosis, he has superficial femoral vein thrombosis left side and is on treatment for the time being and will continue on Xarelto. 9. Allergic rhinitis. The patient is not to drive until he is reevaluated and all the above was explained to him in detail. He verbalized understanding and in agreement with plan of care. RUBÉN GOMEZ MD WMS/modl /[id number] d: 08/09/166 t: 08/10/16 0925, DISCHARGE SUMMARY
--- NOTE | ~2016-07-23 | CON ---
PATIENT'S NAME: JAN CALIXTO [facility] AGE: 50 Y [address] ROOM: [address] [place], [place] [address] LOCATION: [facility] ADMIT DATE: 07/23/2016 Consultation DISCHARGE DATE: FAMILY PHYSICIAN: CROW DE LA ROSA MD ATTENDING PHYSICIAN: Rubén Gomez DATE OF CONSULTATION: 07/30/2016 REFERRING PHYSICIAN: Gregory Rangel MD Team members reporting include Dr. Gomez; Barbra Marcano, social media strategist; Vani Dixon RN; Indira Aparicio, PT; Marcela Swain, OT; Radha Pedroza, therapeutic rec; Sister Esthela Milton, Pastoral Care. CURRENT STATUS: Jan is a 50-year-old man admitted to our inpatient rehab unit on July 23, 2016, following a fractured left hip. The patient does have incisions and bruising, taking [place] for pain. He is on a regular diet for supper this evening as the patient has been on a full liquid diet due to his ileus prior to this. The patient's prealbumin is 17. He can transfer sit to supine at minimal assistance; sit to stand and stand to sit, minimal assistance; and bed to chair and chair to bed, contact guard assistance. He can walk 60 feet with a platform front-wheeled walker. He complains of a lot of distal knee pain. Stairs have not been done yet for safety. Goals will be set for standby assistance to mod I. He has met 2/4 short-term PT goals. The patient can dress his upper body at standby; lower body, moderate assistance using adaptive equipment; grooming, standby; bathing, minimal assistance; toilet and shower transfers, minimal assistance; toileting, dependent; and feeding, standby. His endurance overall is improving. He has met 2/4 short-term OT goals. Car transfers have not been done yet, but we will do by the end of the week. The patient has been very open to pastoral care. DISCHARGE PLAN: The patient is receiving 3 hours of PT and OT Friday through Friday. The patient has daily rehab, nursing, and physiatry involvement as well as therapeutic recreational services 4 days per week. The patient has shown functional improvement and is progressing. Please see his plan of care for specific goals. Plan is for the patient to discharge in approximately 2 weeks. The patient's goal is to be able to return to home, but if not, he is willing to go to [facility]. BARBRA MARCANO FOR RUBÉN GOMEZ MD PATIENT'S NAME: JAN CALIXTO [facility] AGE: 50 Y [address] ROOM: [address] [place] [address] LOCATION: [facility] ADMIT DATE: 07/23/2016 Consultation DISCHARGE DATE: FAMILY PHYSICIAN: CROW DE LA ROSA MD ATTENDING PHYSICIAN: Rubén Gomez TD/modl /[id number] d: 07/31/161809 t: 08/13/16 0834, CONSULTATION REPORT
--- NOTE | ~2016-07-23 | HP ---
PATIENT'S NAME: JAN CALIXTO [facility] AGE: 50 Y [address] ROOM: [address] [place], [place] [address] LOCATION: [facility] ADMIT DATE: 07/23/2016 History & Physical DISCHARGE DATE: FAMILY PHYSICIAN: CROW DE LA ROSA MD ATTENDING PHYSICIAN: Rubén oGmez DATE OF SERVICE: This 50-year-old gentleman is admitted for continuous medical treatment and intensive rehabilitation to rehab unit at [facility], [place], [place], on 07/23/2016. 1. Unstable gait. 2. Dependent on activities of daily and self-care. 3. At high risk of falling. 4. Status post ORIF left hip, intertrochanteric fracture done on 07/12/2016, details on record. He is at the present time intended to intensive rehabilitation, PT/OT 3 hours per day, 15 hours per week for about 10-14 days, aiming to discharge with modified independence and follow on outpatient basis. He is at the present time alert, oriented. Vitals: Blood pressure 109/56, temperature 99.3 to 98.0, pulse 95, respiration rate 14. He is 5 feet 9 inches tall and weighs 96.2 kg. ALLERGIES: HE IS ALLERGIC TO NONSTEROIDAL AND ANTIINFLAMMATORY MEDICATION, AND PSEUDOEPHEDRINE AND NAPROXEN. AT THE PRESENT TIME, HE IS ABLE TO FOLLOW INSTRUCTIONS. HE IS ON THE FOLLOWING MEDICATIONS. 1. DULCOLAX SUPPOSITORY 10 MG RECTALLY Q.8 HOURS NEEDED. 2. LOVENOX 30 MG SUBCU B.I.D. 3. FEOSOL 325 MG TWICE DAILY P.O. 4. LACTINEX OR FLORANEX ONE TABLET EVERY DAY. 5. PROTONIX 40 MG P.O. DAILY. 6. MIRALAX 17 G P.O. NEEDED. 7. LYRICA 75 MG P.O. DAILY. 8. FLOMAX 0.8 MG P.O. AT BEDTIME. 9. VITAMIN D 89434 UNITS P.O. DAILY FOR 8 WEEKS. 10. NORCO 5/325 Q.4 HOURS ONE TABLET NEEDED, DO NOT EXCEED ACETAMINOPHEN 4 G Q.24 HOURS. 11. DULCOLAX SUPPOSITORY 10 MG RECTALLY NEEDED P.R.N. PATIENT'S NAME: JAN CALIXTO [facility] AGE: 50 Y [address] ROOM: [address] [place], [place] [address] LOCATION: [facility] ADMIT DATE: 07/23/2016 History & Physical DISCHARGE DATE: FAMILY PHYSICIAN: CROW DE LA ROSA MD ATTENDING PHYSICIAN: Rubén Gomez 12. VALIUM 5 MG Q.4 HOURS NEEDED P.R.N. 13. BENADRYL 25 TO 50 MG P.O. Q.6 HOURS NEEDED P.R.N. 14. MOM 30 ML NEEDED P.R.N. 15. FLEET ENEMA 133 RECTALLY NEEDED. PAST HISTORY OF SIGNIFICANCE FOLLOWS. 1. HISTORY OF ANEMIA. 2. REFLUX GASTRIC DISEASE. 3. HISTORY OF CHOLECYSTECTOMY. 4. INGUINAL HERNIA REPAIR. 5. NEUROPATHY. 6. OSTEOPOROSIS. 7. BENIGN PROSTATIC HYPERTROPHY. 8. 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 AT THE PRESENT TIME, WE WILL PUT ON INTENSIVE PT/OT, 3 HOURS PER DAY, 15 HOURS PER WEEK FOR ABOUT 2 WEEKS, AIMING TO DISCHARGE MODIFIED INDEPENDENCE AND FOLLOW ON OUTPATIENT BASIS. WE WILL SEND IN A.M. FOR URINALYSIS WITH REFLEX MICROSCOPY. CBC WITH AUTOMATED DIFFERENTIAL. CMS. PREALBUMIN. AT THE PRESENT TIME, WE WILL KEEP ON DR. Sofi HUTCHISON AND HOSPITALIST TO FOLLOW NECESSARY. HE IS WEIGHTBEARING TOLERATED WITH HELP. ALL THE ABOVE WAS EXPLAINED TO HIM IN DETAIL. HE VERBALIZED UNDERSTANDING AND AGREEMENT WITH PLAN OF CARE. RUBÉN GOMEZ MD WMS/modl /[id number] D: T: HISTORY & PHYSICAL
--- NOTE | ~2016-07-23 | CON ---
PATIENT'S NAME: JAN CALIXTO [facility] AGE: 50 Y [address] ROOM: G3296 [place], [place] [address] LOCATION: [facility] ADMIT DATE: 07/23/2016 Consultation DISCHARGE DATE: FAMILY PHYSICIAN: CROW DE LA ROSA MD ATTENDING PHYSICIAN: Rubén Gomez DATE OF CONSULTATION: 07/23/2016 REFERRING PHYSICIAN: Gregory Rangel MD Team members reporting include Dr. Gomez; Barbra Marcano, social security specialist; Vani Dixon RN; Indira Aparicio, PT; Myranda Graham, PT; Marcela Swain, OT; Radha Pedroza, therapeutic rec; Sister Esthela Milton, Pastoral Care; and Jen Conti, pharmacist. CURRENT STATUS: Jan is a 50-year-old man, who admitted to our inpatient rehab unit on July 23, 2016. The patient had fallen at home when getting out of the shower and he did fracture his left hip. The patient did have open reduction and internal fixation of that. He has a history of postoperative adynamic ileus, urinary retention, acute blood loss anemia, hypokalemia, gastroesophageal reflux disease, left arm weakness secondary to a previous trauma, and acute hypoxic respiratory failure. The patient is incontinent of bowel at times. He has a Walker catheter. He has calluses on his left hand. He has some floor haider. An incision on his left hip. The patient can transfer sit to supine and supine to sit, dependent. Sit to stand, mod assistance. Bed to chair, minimal to dependent. He can ambulate with a danita-walker. Weightbearing as tolerated. He is very antalgic and swollen. He has limited range of motion overall. Stairs have not been done yet for safety. The patient can complete toilet transfers at minimal to moderate assistance. Complains of lots of pain in his left leg. Pastoral Care and therapeutic rec will be seeing the patient. Pharmacy has no concerns. DISCHARGE PLAN: The patient is receiving 3 hours of PT and OT Friday through Friday. The patient has daily rehab, nursing, and physiatry involvement as well as therapeutic recreational services 4 days per week. The patient has shown functional improvement and is progressing. Please see his plan of care for specific goals. Plan is for the patient to discharge in approximately 3 weeks. The patient's goal is to return to home and if not able to return to home, would consider going to the [facility] Swing Bed. BARBRA MARCANO FOR RUBÉN GOMEZ MD PATIENT'S NAME: JAN CALIXTO [facility] AGE: 50 Y [address] ROOM: [place] [address] LOCATION: [facility] ADMIT DATE: 07/23/2016 Consultation DISCHARGE DATE: FAMILY PHYSICIAN: CROW DE LA ROSA MD ATTENDING PHYSICIAN: Rubén Gomez TD/modl /[id number] d: 07/31/161809 t: 08/13/16 0837, CONSULTATION REPORT
--- NOTE | ~2016-07-23 | ENPV ---
Vascular Lower Extremities DVT Study Procedure Demographics Patient Name JAN CALIXTO Date of Study 07/25/2016 Patient Number [id number] Gender Male Date of 1965 Age 50 Visit Number [id number] Height Accession Number [id number] Weight Room Number G3296 BSA BMI Referring Rubén Melgar Interpreting Carlos Dumont MD Physician Physician Physician Ordering Physician Carlos Dumont MD Ct Tech Automation Control Technician Diana Laguna [facility], T Conclusions Summary There is acute deep vein thrombosis in the right proximal femoral vein. Procedure Type of Study: Veins:Lower Extremities DVT Study, Lower Extremity Left. Indications for Study:Swelling of Limb and Unilateral edema. Appropriate Use Criteria:9 Patient Status:Routine. Study Location:Inpatient Portable. Technical Quality:Adequate visualization. - Preliminary reported to:Dr. Melgar @ [id number]. Velocities are measured in cm/s ; Diameters are measured in cm Right Lower Extremities DVT Study Measurements Right 2D and Doppler Measurements + + + + +------+------+ + !Location !Visualized!Compressibility!Thrombosis!Signal!Reflux!Reflux ! ! ! ! ! ! ! !(sec) ! + + + + +------+------+ + !Common !Yes !Yes !None !Phasic! ! ! !Femoral ! ! ! ! ! ! ! + + + + +------+------+ + Left Lower Extremities DVT Study Measurements Left 2D and Doppler Measurements + + + + +------+------+ + !Location !Visualized!Compressibility!Thrombosis!Signal!Reflux!Reflux ! ! ! ! ! ! ! !(sec) ! + + + + +------+------+ + !GSV Thigh !Yes !Yes !None !Phasic! ! ! + + + + +------+------+ + !Common !Yes !Yes !None !Phasic! ! ! !Femoral ! ! ! ! ! ! ! + + + + +------+------+ + !Prox !No !No !Acute !Absent! ! ! !Femoral ! ! ! ! ! ! ! + + + + +------+------+ + !Mid Femoral!Yes !Yes !None !Phasic! ! ! + + + + +------+------+ + !Dist !Yes !Yes !None !Phasic! ! ! !Femoral ! ! ! ! ! ! ! + + + + +------+------+ + !Popliteal !Yes !Yes !None !Phasic! ! ! + + + + +------+------+ + !Gastroc !Yes !Yes !None ! ! ! ! + + + + +------+------+ + !PTV !Yes !Yes !None ! ! ! ! + + + + +------+------+ + !Peroneal !Yes !Yes !None ! ! ! ! + + + + +------+------+ + Signature dtt: SANJU FREIRE dtdanish: 07/25/16 1431 Physician Self Edit
--- NOTE | ~2016-07-23 | CON ---
PATIENT'S NAME: JAN CALITXO [facility] AGE: 50 Y [address] ROOM: G3297 [place], [place] [address] LOCATION: [facility] ADMIT DATE: 07/23/2016 Consultation DISCHARGE DATE: 08/09/2016 FAMILY PHYSICIAN: CROW DE LA ROSA MD ATTENDING PHYSICIAN: Rubén Gomez DATE OF CONSULTATION: 08/06/2016 REFERRING PHYSICIAN: Gregory Rangel MD Team members reporting include Dr. Gomez; Barbra Marcano, renal social worker; Vani Dixon RN; Indira Aparicio, PT; Marcela Davenport, OT; Radha Pedroza, therapeutic rec; and Sister Esthela Milton, Pastoral Care. CURRENT STATUS: Jan is a 50-year-old man, admitted to our inpatient rehab unit on July 23, 2016, following a left femur fracture. The patient is continent of bowel and bladder. He does have a right chest abrasion and some incisions. The patient does take [place] for pain with occasional Valium for pain. He can complete all of his transfers at contact guard assistance to minimal assistance. He has met 3/4 short-term PT goals. He can walk 120 feet with a platform front wheeled walker at standby assistance. He can climb stairs; minimal assistance going down, contact guard assistance going up. The patient can complete upper body dressing at standby; lower body dressing, minimal assistance; grooming, independent; self feeding, standby; home management tasks, moderate assistance. He has met 2/4 short-term OT goals and 2/13 long-term OT goals. The patient can complete car transfers at contact guard assistance with step- by-step cuing. The patient has been very open to pastoral care. DISCHARGE PLAN: The patient is receiving 3 hours of PT and OT Friday through Friday. The patient has daily rehab, nursing, and physiatry involvement as well as therapeutic recreational services 4 times per week. The patient has shown functional improvement and is progressing. Please see his plan of care for specific goals. Plan is for the patient to discharge on August 09, 2016. The patient is going to the [facility] Swing Bed to continue his therapy in order to return to home. BARBRA MARCANO FOR RUBÉN GOMEZ MD TD/modl PATIENT'S NAME: JAN CALIXTO [facility] AGE: 50 Y [address] ROOM: [place] [address] LOCATION: [facility] ADMIT DATE: 07/23/2016 Consultation DISCHARGE DATE: 08/09/2016 FAMILY PHYSICIAN: CROW DE LA ROSA MD ATTENDING PHYSICIAN: Rubén Gomez /[id number] d: t: 08/16/16 1854, CONSULTATION REPORT
[~2016-07-23 10:21] MED LIST: ALEVE220 MG PO; LYRICA 75MG CAP75 MG PO; MIRALAX PO527 GM/BOT PO; NORCO 5-325 TA1 EACH PO; PRILOSEC20 MG PO; PROBIOTIC1 EAC1 PO; TOVIAZ8 MG PO
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
--- NOTE | 2016-07-24 04:39 | NUR ---
A/O x 3. Pleasant. Cooperative. 1-2 assist dainta walker pivot to w/c. Walker patent/intact with hong urine. Up watching TV until 2300. Medication taken withouth difficulty. No c/o's. Rested well. Pull up's on at HS.
[2016-07-24 05:38] LABS: HEMATOCRIT 27.5 % (37.0-53.0); HEMOGLOBIN 8.5 g/dL (12.0-17.0); MCH 28.2 pg (27.0-34.0); MCHC 30.9 gm/dL (32.0-36.5); MCV 91.4 fl (83.0-98.0); MPV 10.1 fl (9.4-12.4); RBC 3.01 M/uL (4.00-6.00); RDW-CV 15.4 % (11.9-14.6); WBC 4.5 K/uL (4.0-11.0)
[2016-07-24 05:42] LABS: PLATELET COUNT 398 K/uL (150-450)
[2016-07-24 06:00] LABS: ALK PHOS 106 IU/L (33-138); ALT 28 IU/L (12-78); ANION GAP 13.7 (10.0-19.0); AST 29 IU/L (10-40); BLOOD UREA NITROGEN 7 mg/dL (6-24); CALCIUM 7.6 mg/dL (8.5-10.5); CHLORIDE 110 mMol/L (96-110); CO2 26 mMol/L (22-32); CREATININE 0.8 mg/dL (0.6-1.3); ESTIMATED GFR (MDRD EQUATION) > 60; POTASSIUM 3.7 mMol/L (3.7-5.1); TOTAL BILIRUBIN 0.5 mg/dL (0.0-1.5); TOTAL PROTEIN 5.2 g/dL (6.0-8.4)
[2016-07-24 06:01] LABS: SODIUM 146 mMol/L (135-145)
[2016-07-24 06:16] LABS: ABSOLUTE NEUTROPHIL CT (ANC) 2.7 K/uL (1.4-9.0); BANDED NEUTROPHIL # 0.1 K/uL (0.0-0.1); BANDED NEUTROPHILS % 2 %; LYMPHOCYTE # 0.9 K/uL (0.8-4.0); LYMPHOCYTE % 21 %; MONOCYTE # 0.5 K/uL (0.0-1.0); SEGMENTED NEUTROPHIL # 2.6 K/uL (1.4-9.0); SEGMENTED NEUTROPHIL % 58 %
--- NOTE | 2016-07-24 09:16 | NUR ---
When therapy was giving pt his shower, he started to feel light headed, she alerted staff. Pt assisted to wheel chair with 3 staff, pt was stable on feet. Therapist took BP before transfer 105/62 96.4-108-16, pt pale in color, maintained conscious and talking. Pt assisted to wheel chair with assist, sat in wheel chair for approxl 15 min. drank apple juice and took am meds. 0850 BP 85/60, pt assisted to bed with 2 assist, reports would rest awhile and then try to eat some breakfast. 0910 BP 87/68, resting in bed quietly.
[2016-07-24 09:28] LABS: BILIRUBIN URINE NEGATIVE (NEGATIVE); BLOOD URINE 50 /UL (NEGATIVE); COLOR URINE YELLOW (YELLOW); GLUCOSE URINE NEGATIVE (NEGATIVE); KETONE URINE NEGATIVE (NEGATIVE); LEUKOCYTES URINE 100 /UL (NEGATIVE); NITRITE URINE NEGATIVE (NEGATIVE); PROTEIN URINE 15 mg/dL (NEGATIVE); SPEC GRAVITY URINE 1.025 (1.003-1.035); TURBIDITY URINE CLEAR (CLEAR); UROBILINOGEN URINE 8 mg/dL (NORMAL)
[2016-07-24 09:40] LABS: BACTERIA URINE MANY (NEGATIVE); EPITHELIAL URINE RARE #/HPF (NEGATIVE); MUCUS URINE 4+ (NEGATIVE)
[2016-07-24 09:42] LABS: CRYSTALS URINE CALCIUM OXALATE (NEGATIVE)
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
--- NOTE | 2016-07-25 01:49 | NUR ---
Significant Event: Alert & oriented. Pleasant & cooperative. [place] drains clear hong urine. Rt elbow IV flushes well but no blood return. Was reinforced with tape. Has ice to lt hip. Dressing intact. Wears calf pumps. He is a 1-2 assist pivot with danita walker. COntinues on full liquid diet Suppository given this evening as ordered and pt had a watery, very foul smelling liquid BM. Buttocks looks clear. He rated pain a 5 but refused RX. so pt repositioned. Follow up:
--- NOTE | 2016-07-25 13:53 | NUR ---
D: TR progress note for 07/25/16. I: Pt seen for 2 units at 837 for cognitive thinking task, coping skills, fine motor skills and processing. R: Pt seen for functional skills building working on motor skills, scanning sequencing, attention to task, and pain management doing new leisure word task "fillins" to increase independence in all task and promote recovery. Task was adapted by color coding, decreasing complexity and enlarged. Pt demonstrated some difficulty with processing information on game's strategy AEB repeatedly loosing place in page when attempt to scan up/down, L)/R) and across but with cues and memory strategies pt able to complete SBA > occasional cues by end of session. Pt noted with fair motor skills as writing legible and good attention to task. Education started on use of leisure to promote recovery and for coping with examples given along with weekend planning. P: Will continue to see to address goals and plan of care.
--- NOTE | 2016-07-25 15:43 | NUR ---
Significant Event: PATIENT IS ALERT/ORIENTED. SLIGHT EDEMA TO LEFT SIDE ARM, MORE TO LOWER LEFT LEG. INCISIONS ARE DRY AND COVERED WITH DRESSINGS. DOES GET DULCOLAX SUPPOSITORY BID FOR ILEUS. LEE DRAINING HIMANSHU URINE. GAVE 1 NORCO AND VALIUM AT 0820 FOR PAIN AND SPASMS, THIS SEEMED TO HELP. DID DOPPLER OF LEFT LOWER LEG FOR THE EDEMA, DVT IS PRESENT. PATIENT IS ON BEDREST WITH BATHROOM PRIVILEDGES ONLY. VITAL SIGNS EVERY 4 HOURS. LAST DONE AT 1530. IV TO RIGHT UPPER ARM PERIPHERAL, FLUSHES WELL. DR. ELY AWARE OF DVT WITH PATIENT BEING ON LOVENOX, AWAITING TO HEAR HIS ORDERS. Follow up:
--- NOTE | 2016-07-26 05:45 | NUR ---
A/O x 3. Pleasant. Cooperative. Continent. Walker intact/patent. HS care completed. HS snack given. Rested well. Medicated for Pain at hs. Rested very well. Dr. kaur notified of Superficial blood clot. No new orders.
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
--- NOTE | 2016-07-26 15:00 | NUR ---
Significant Event:PATIENT ALERT AND ORIENTED THIS SHIFT. VSS. TRANSFERS WITH 1 ASSIST GAIT BELT AND WALKER. COMPLAINTS OF PAIN IN LEFT HIP. GIVEN NORCO 1 TAB PO THIS AM AT 0851 FOR PAIN PER REQUEST. HAS HAD COMPLAINTS OF ABDOMINAL CRAMPING AT TIMES. DID HAVE A LARGE BM TODAY. DRESSINGS CHANGED TO LEFT HIP X 2 DUE TO THEM BEING LOOSE. SALINE LOCK INTACT. NO OTHER COMPLAINTS THIS SHIFT. Follow up:
--- NOTE | 2016-07-27 04:14 | NUR ---
A/O x 3. Pleasant. Cooperative. 1-2 assist stand pivot walker. FWB to L Hip. Sling to L arm when OOB. Fadumorelyu started 07/25/16. Tolerating meals well. HS snack given. Continent of B/B. Medicated w tylenol for pain at hs. Rested well.
--- NOTE | 2016-07-27 16:17 | NUR ---
Significant Event: Alert and oriented x 3. Up with 1A platform walker and gait belt. Pain to left hip. 1 [place] given this morning. Patient states that abdominal cramping is feeling better today. LG BM this shift. Dressing to left hip changed. Uses call light appropriately. Cooperative with cares. Walker patent and draining. Follow up:
--- NOTE | 2016-07-28 03:12 | NUR ---
Significant Event: Patient is alert and oriented x 3. VSS. Up 1-2 assist with GB/platform walker. Walker patent drains 1050 mls tonight. [place] given at bedtime for left hip pain, also c/o of pain to his upper right abdomen at times. Supp given last evening, has had a moderate looses stool. Dressing to left hip C/D/I. Follow up:
--- NOTE | 2016-07-28 15:06 | NUR ---
Significant Event:PATIENT ALERT AND ORIENTED THIS SHIFT. VSS. TRANSFERS WITH 1 ASSIST, GAIT BELT AND PLATFORM WALKER. COMPLAINTS OF PAIN THIS AM BUT DID NOT WANT ANY PAIN MED. DID TAKE NORCO 1 TAB PO THIS AFTERNOON AT 1254. RESTED IN BED BETWEEN MEALS. CONTINUES TO GET A SUPPOSITORY FOR BOWEL. DID HAVE A MODERATE BM TODAY BUT STILL VERY RUNNY. BOWEL SOUNDS REMAIN HIGH PITCHED BUT IS PASSING GAS. LEE DRAINS HIMANSHU URINE. NO OTHER COMPLAINTS. Follow up:
--- NOTE | 2016-07-29 04:14 | NUR ---
Significant Event: Patient is alert and oriented x 3. VSS. Up 1-2 assist GB/Platform walker pivot transfers. Is able to walk into the bathroom on occasion but tired very easily. Left hip precautions. Dressing x 3 to his left hip. Is on a bowel program and gets supp BID, has an ileus. Has already had a lg loose stool this morning. 1 [place] given at 0400 for hip pain. Walker in place with 1550 mls out. Is on a full liquid diet and takes meds in applesauce. Saline lock to his right posterior arm. Follow up:
[2016-07-29 05:46] LABS: BASOPHIL % 0.4 %; EOSINOPHIL # 0.1 K/uL (0.0-0.5); EOSINOPHIL % 2.9 %; HEMATOCRIT 30.6 % (37.0-53.0); HEMOGLOBIN 9.5 g/dL (12.0-17.0); IMMATURE GRANULOCYTE % 0.9 %; LYMPHOCYTE # 1.1 K/uL (0.8-4.0); LYMPHOCYTE % 24.6 %; MCH 28.8 pg (27.0-34.0); MCV 92.7 fl (83.0-98.0); MONOCYTE # 0.4 K/uL (0.0-1.0); MONOCYTE % 7.8 %; MPV 9.4 fl (9.4-12.4); NEUTROPHIL # (ANC) 2.9 K/uL (1.4-9.0); NEUTROPHIL % 63.4 %; NRBC % 0 /100WBC (0-0.00); PLATELET COUNT 476 K/uL (150-450); RDW-CV 15.9 % (11.9-14.6); WBC 4.5 K/uL (4.0-11.0)
[2016-07-29 06:08] LABS: ALBUMIN 2.2 gm/dL (3.5-5.0); ALK PHOS 161 IU/L (33-138); ALT 27 IU/L (12-78); AST 22 IU/L (10-40); BLOOD UREA NITROGEN 6 mg/dL (6-24); CHLORIDE 111 mMol/L (96-110); CO2 25 mMol/L (22-32); CREATININE 0.8 mg/dL (0.6-1.3); ESTIMATED GFR (MDRD EQUATION) > 60; SODIUM 145 mMol/L (135-145); TOTAL PROTEIN 5.7 g/dL (6.0-8.4)
[2016-07-29 06:10] LABS: TOTAL BILIRUBIN 0.3 mg/dL (0.0-1.5)
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
--- NOTE | 2016-07-29 14:19 | NUR ---
Significant Event: PT ALERT AND ORIENTED. 1-2 ASSIST WITH WALKER AND GAIT BELT. TAKES MEDS WELL. NORCO FOR PAIN 2 TIMES THIS SHIFT. LEE CATH INTACT. VITALS STABLE. SALINE LOCK TO RT ARM. HIP PRECAUTIONS. DRESSING INTACT. BM LAST EVENING AND IN THE PILLAR MAN. SUPP NOT GIVEN. PT REMAINS ON A FULL LIQUID DIET. Follow up:
--- NOTE | 2016-07-30 05:16 | NUR ---
Alert and oriented. Cooperative with cares. Up with one assist and walks to bed with platform walker. On HIP precautions. Given [place] at 2030 and slept well the rest of night. On full liquid diet. Note on chart requesting pt be advanced to reg diet. Talks pills whole in applesauce. Walker patent with 1100 out. Still has hep lock to rt arm which is not being used. See if we can get order to d/c that today please. On BID supp for ileus which is resolved, as he had two BMs early yest. Refused both supp yesterday. Sister here last evening with multiple questions. Pt states she can be overbearing at times.
--- NOTE | 2016-07-30 14:40 | NUR ---
D: TR progress note for 07/30/16. I: Pt seen for 2 units 1230 for leisure education, coping strategies, pain/stress management techniques and functional transfers. R: Pt seen for functional skills building working on education for utilization of leisure involvement for pain/stress management, cognitive thinking task, and coping strategies to promote recovery and to increase independence with leisure task post discharge for time management. Pt transferred supine > sit with min assist for LLE management, sit > stand from EOB min assist after second attempt and pivoted to WC with platform walker CGA. Pt started on new leisure task doing complex logic puzzles on computer. Pt able to operate computer keypad without difficulty using RUE, independent with cognitive thinking for problem solving and stratigizing. Education continued on pain/stress management and coping utilizing leisure involvement. P: Will continue to see to address goals and plan of care.
--- NOTE | 2016-07-30 15:07 | NUR ---
Significant Event: Alert and oriented x 3. Up with 1A platform walker and gait belt. [place] given x 2. Last given at 1202. Meds whole with water. Diet changed to regular. Saline lock dc'd. Dressings x 3 to left hip changed. C/D/I. Refused Supp. this morning. Walker patent and draining. To be removed for trial tomorrow morning at 0600. Cooperative with cares. Uses call light appropriately. Follow up:
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
--- NOTE | 2016-07-31 06:11 | NUR ---
Aaron peng/yamel'ed. Tolerated well.
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
--- NOTE | 2016-07-31 11:46 | NUR ---
D: TR progress note for 07/31/16. I: Pt seen for 2 units at 1100 in group session for education on relaxation techniques, stress/pain management, coping strategies, group participation and leisure education. R: Pt seen for functional skills building working on relaxation techniques, stress/pain management, continued education on coping skills and group interaction to increase knowledge of options available to assist with recovery. Pt completed functional social communication skills independently which involved personal introduction of self and identification of ways past [place] activities pt enjoyed. Education completed by verbal discussion and modeling on the signs and symptoms the physical stress/pain can cause on the body and it's affects along with identification of coping strategies, relaxation techniques using music, playaways, aromatherapy, labyrinthi, breathing exercises and leisure activities. P: Will continue to see to address goals and plan of care.
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
--- NOTE | 2016-08-01 03:48 | NUR ---
A/O x 3. Pleasant. Cooperative. OOB in recliner for dinner. 1-assist using platform walker transfer to BR. Continent of B/B. 1-BM large. Pull ups on. [place] in L hip intact. Incision approximated w no signs of infection. Medicated for pain at HS. FWB to LLE. Rested well.
--- NOTE | 2016-08-01 13:01 | NUR ---
Significant Event: PATIENT UP 1 ASSIST, WALKER, GAIT BELT. CALLS APPROPRIATELY. VITALS STABLE ON ROOM AIR. NORCO FOR PAIN PRN. INCISION COVERED WITH ISLAND BARRIER. CONTINENT OF BOWEL AND BLADDER ALL DAY. RESTING BETWEEN THERAPIES, LEFT LEG STIFF AND TENDER. ALERT AND ORIENTED X3 BUT SLOW TO RESPOND AT TIMES. Follow up:
--- NOTE | 2016-08-01 16:01 | NUR ---
A - NUTRITION FOLLOW-UP. WT DOWN 6# SINCE 07/25, HOWEVER, SAME WT 07/17-07/22. LABS: GLU 101, ALB 2.2, PRE-ALB 17. MEDS: NIK DIET: ADVANCED TO REGULAR 07/30. ENSURE ENLIVE TID; ENSURE PUDDING AT LUNCH AND MAGIC CUP AT DINNER. INTAKE 80% X11 MEALS, SUPPLEMENT 75-100%. GOOD APPETITE PER PT. PER PT, GOT TOO MUCH FOOD YESTERDAY. LIKES ORAL SUPPLEMENT BUT REQUESTED TO DECREASE ENSURE ENLIVE TO BID. EST NEEDS: [id number] KCAL, 93-112 GRAMS PROTEIN, FLUID NEEDS: 1ML/KCAL D - NUTRITION PROBLEM RESOLVED. I - DECREASE ENSURE ENLIVE TO BID; CONTINUE W/ ENSURE PUDDING 1X/DAY AND MAGIC CUP 1X/DAY. M/E - GOAL: PT WILL CONTINUE TO CONSUME >75% OF MEALS IN 5-7 DAYS.
--- NOTE | 2016-08-01 21:16 | NUR ---
Significant Event: A&Ox3, VSS on room air. Left side stiff and weaker than right. Transfers with 1PA with walker/GB to bathroom. PM suppository given with results. [place], 1tab, given at 1938 for left groin pain with relief noted. Moved to room 3297 bed 1 at shift change. Resumed cares from [id number]. Follow up: continue with plan of care.
--- NOTE | 2016-08-01 23:01 | NUR ---
CORRECTION RESUMED CARES FROM [phone]
--- NOTE | 2016-08-02 03:33 | NUR ---
Significant Event: A/Ox3. Up with 1 assist, gait belt, walker. calls appropriately. vitals stable. continent of B/B, 3-bm's -med. Pull ups on. [place] in L hip intact. Incision shows no signs of infection. left leg stiff and sore. Follow up:
--- NOTE | 2016-08-02 14:14 | NUR ---
D: TR progress note for 08/02/16. I: Pt seen for 3 units at 1215 for community integration skills building, functional transfers, and safety awareness. R: Pt seen for functional skills building working on mobility, safety, endurance and functional transfers in anticipation for discharge back into community. Pt given visual demonstration and verbal instructions on proper technique for car transfers prior to pt completing them. Pt transferred sit > stand from WC CGA, ambulated with platform walker 5 feet to/from vehicle CGA and transferred in/out of vehicle CGA with extra time allotted and verbal cues. Pt was CGA for LLE management, SBA for RLE and for positioning self with seat surface adapted using trash bag to ease task. Pt tolerated ride with C/o pain going from 0>4 by end of session. P: Will continue to see to address goals and plan of care.
--- NOTE | 2016-08-02 17:10 | NUR ---
Significant Event: Pt up in room with platform walker, 1 assist, sl. unsteady, franko. fair. Incisions approx. with gianna. [place] last at 1147. Miralax held this am r/t 4 loose stools last noc. Did receive ordered dulc. suppository. 2 Small loose BM today. Pt pleasant and cooperative with cares. Follow up: pain management, activity
--- NOTE | 2016-08-03 03:55 | NUR ---
Significant Event:PATIENT IS ALERT AND ORIENTED. SPEECH IS SLOW. PATIENT IS PLEASANT. UP X1 WITH PLATFORM WALKER. INCISIONS X3 TO LEFT HIP/KNEE AREA INTACT WITH AMINA. BP RUNS LOW AT 96/62. PATIENT TOOK NORCO AT HS AND WAS WITHOUT FURTHER COMPLAINTS. Follow up:
--- NOTE | 2016-08-03 19:36 | NUR ---
Significant Event: Pt up in room with platform walker, 1 assist, sl. unsteady, franko. well. Miralax held this am for moderate soft bms. Dulcolax suppository was given this am but later scheduled doses were stopped by Dr. Melgar as pt is having regular BM's. [place] this am, Tylenol this afternoon. Pt rested in bed off/on t/o day. Pt pleasant and cooperative with cares. Moderate soft BM Follow up: activity, safety, pain management
--- NOTE | 2016-08-04 04:09 | NUR ---
A/O x 3. 1-assist to platform walker. Tolerates well. Pleasant. Cooperative. HS snack given. Continent of B/B. Medicated for pain at HS. Rest well.
--- NOTE | 2016-08-04 15:25 | NUR ---
Significant Event: Pt up in room and [place] with platform walker, franko fontaine. well. [place] this am. Minimal c/o pain. incision approx. with gianna. Large formed BM this am, miralax was given as ordered. Pt pleasant and cooperative with cares. Follow up: activity, safety, pain management
--- NOTE | 2016-08-05 04:19 | NUR ---
A/O x 3. Pleasant. Cooperative. 1-assist standy to platform walker. Continent of B/B. Medicated for pain at HS. HS snack, sandwich and jello eaten 100%. Tolerated well. Medicated for Pain at HS. Rested well.
[2016-08-05 05:51] LABS: BASOPHIL % 0.9 %; EOSINOPHIL # 0.1 K/uL (0.0-0.5); EOSINOPHIL % 3.9 %; HEMATOCRIT 33.2 % (37.0-53.0); HEMOGLOBIN 10.1 g/dL (12.0-17.0); IMMATURE GRANULOCYTE % 0.6 %; LYMPHOCYTE # 1.2 K/uL (0.8-4.0); LYMPHOCYTE % 36.5 %; MCH 28.1 pg (27.0-34.0); MCHC 30.4 gm/dL (32.0-36.5); MCV 92.5 fl (83.0-98.0); MONOCYTE # 0.4 K/uL (0.0-1.0); MONOCYTE % 12.2 %; MPV 9.8 fl (9.4-12.4); NEUTROPHIL # (ANC) 1.6 K/uL (1.4-9.0); NEUTROPHIL % 45.9 %; NRBC % 0 /100WBC (0-0.00); RBC 3.59 M/uL (4.00-6.00); WBC 3.4 K/uL (4.0-11.0)
[2016-08-05 05:56] LABS: PLATELET COUNT 302 K/uL (150-450)
[2016-08-05 06:08] LABS: ALBUMIN 2.5 gm/dL (3.5-5.0); ALK PHOS 160 IU/L (33-138); ALT 29 IU/L (12-78); AST 23 IU/L (10-40); BLOOD UREA NITROGEN 15 mg/dL (6-24); CALCIUM 8.2 mg/dL (8.5-10.5); CHLORIDE 108 mMol/L (96-110); CO2 28 mMol/L (22-32); CREATININE 0.9 mg/dL (0.6-1.3); ESTIMATED GFR (MDRD EQUATION) > 60; SODIUM 144 mMol/L (135-145); TOTAL BILIRUBIN 0.2 mg/dL (0.0-1.5); TOTAL PROTEIN 5.9 g/dL (6.0-8.4)
--- NOTE | 2016-08-05 15:13 | NUR ---
Significant Event: A/0 X3, NORCO FOR PAIN 1 TAB WHOLE, LAST 1500. 1 ASSIST PLATFORM WALKER, GB, PT/OT SERVICES, L)FOOT SWOLLEN 3+ EDEMA ENCOURAGE TO ELEVATE, AMINA TO L)HIP DRY AND INTACT, [place] [facility] STATES HE WILL BE UP WED TO LOOK AT THEM. C/O GAS/ABD PAIN TUMS GIVEN AT 0910 WITH RELIEF, GOOD BS AND LARGE BM TODAY, Follow up:
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
--- NOTE | 2016-08-06 14:17 | NUR ---
Significant Event:PATIENT ALERT AND ORIENTED THIS SHIFT. VSS. TRANSFERS WITH 1 ASSIST, GAIT BELT AND PLATFORM WALKER. TAKES NORCO 1 TAB PO FOR PAIN. LAST DOSE GIVEN AT 1215. ICE TO LEFT HIP WHEN RESTING. RESTS IN RECLINER BETWEEN THERAPY. INCISIONS HEALING AND OPEN TO AIR. NO OTHER COMPLAINTS. Follow up:
--- NOTE | 2016-08-06 14:43 | NUR ---
D: TR progress note for 08/06/16. I: Pt seen for 2 units at 1330 for education on relaxation techniques, stress/pain management, coping strategies, leisure education and functional transfers. R: Pt seen for functional skills building working on relaxation techniques, stress/pain management, continued education on coping skills to increase independence with all task. Pt transferred sit > stand from recliner SBA, pivoted to/from WC with platform walker CGA and transferred in/out of WC SBA with good recall on hand placement and safety. Pt had C/o pain and problems sleeping, education and modeling done on use of relaxation techniques, stress management and use of leisure options. Pt able to utilize and operate playaways SBA > mod I, discussed CARE channel and worked on leisure task doing "pattern art" for relaxation. Pt verbalized noted decrease in anxiety just during 30 minute session with plans made to utilize both at night-time. P: Will continue to see to address goals and plan of care.
--- NOTE | 2016-08-07 03:29 | NUR ---
Significant Event: A&Ox3, VSS on room air. Slight hypotension 98/52-107/62. Up to bathroom with 1PA, platform walker/GB. Ambulated in [place] [address] X1 at HS. [place] given at HS with relief noted. Rested well this shift. Follow up:
--- NOTE | 2016-08-07 11:42 | NUR ---
D: TR progress note for 08/07/16. I: Pt seen for 2 units at 1100 in group session for education on relaxation techniques, stress/pain management, coping strategies, and leisure education. R: Pt seen for functional skills building working on relaxation techniques, stress/pain management, and continued education on coping skills to increase knowledge in anticipation for discharge back into community. Pt actively participated in session, completed functional social communication skills independently which involved personal introduction of self and identification of ways pt dealt with pain/stress prior to hospitalization. Education completed by verbal discussion and modeling on the signs and symptoms the physical stress/pain can cause on the body and it's affects along with identification of coping strategies, relaxation techniques using music/CARE ch. playaways, aromatherapy, breathing exercises and leisure activities. P: Will continue to see to address goals and plan of care.
--- NOTE | 2016-08-07 14:02 | NUR ---
Significant Event:DR Rangel here early, removed gianna, with no return drainage, left open to air. Pt alert and orienated x 3, expresses needs well verbally, talks slowly. Tranfers 1 assist, plateform walker/gait belt. Pt requests ice therapy for right leg PRN. Rests in bed or recliner PRN between activity. Uses call light appropriately for needs. Monitor VS, hx of hypotension. Pt request [place] 1 tab for pain needs. Pt has complained of some sharp pain behind left knee, notices when he sits down @ times. Pt has been pleasant and cooperative with plan of care. Follow up: pain control, monitor VS.
--- NOTE | 2016-08-08 05:06 | NUR ---
Alert and oreinted. Calls for assistance as needed. Up to bathroom with one assist and platform walker. Takes [place] x 1 tab for pain at 2130. Has slept well through the night.
--- NOTE | 2016-08-08 09:36 | NUR ---
INTAKE CONSISTENTLY 100%. WT IS STABLE. PT MOVED TO NO RISK W/ GOOD ORAL INTAKE. WILL CONT ENSURE BID TO MAINTAIN NUTRITION STATUS AND ASSIST NEEDED.
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
--- NOTE | 2016-08-08 16:47 | NUR ---
Significant Event:PATIENT ALERT AND ORIENTED THIS SHIFT. VSS. TRANSFERS WITH 1 ASSIST, GAIT BELT AND HEMIWALKER. COMPLAINTS OF PAIN IN LEFT HIP AND TAKES NORCO 1 TAB PO FOR PAIN NEEDED. LAST DOSE GIVEN AT 1615. SITS IN RECLINER OR WHEELCHAIR WHEN NOT IN THERAPY. INCISION WELL APPROXIMATED. NO OTHER COMPLAINTS. Follow up:
--- NOTE | 2016-08-09 03:48 | NUR ---
Significant Event: Patient is alert and oriented, VSS. Up one assist with GB/Platform walker. [place] removed from his left hip. C/O of pain to his left hip give one [place] x 2, last given at 0150. Has been up alot tonight to the bathroom. Follow up: Will be discharge to assisted Living in [place] today
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
== END 2016-08-09 09:50 | disposition swing bed (61) | DRG 560 ==
LOC: GIRP 10:21
PROVIDERS: ADMIT Physical Medicine & Rehabilitation
PROC: F07Z9ZZ Gait Training/Functional Ambulation Treatment (ICD-10-PCS; principal; 2016-07-23)
PROC: F08Z4ZZ Home Management Treatment (ICD-10-PCS; principal; 2016-07-23)
PROC: F07M6ZZ Therapeutic Exercise Treatment of Musculoskeletal System - Whole Body (ICD-10-PCS; principal; 2016-07-23)
DX: S72.142D Displaced intertrochanteric fracture of left femur, subsequent encounter for closed fracture with routine healing (principal); I82.412 Acute embolism and thrombosis of left femoral vein; E87.0 Hyperosmolality and hypernatremia; K56.7 Ileus, unspecified; D62 Acute posthemorrhagic anemia; W18.2XXD Fall in (into) shower or empty bathtub, subsequent encounter; R26.9 Unspecified abnormalities of gait and mobility; N40.0 Benign prostatic hyperplasia without lower urinary tract symptoms; M81.0 Age-related osteoporosis without current pathological fracture; K21.9 Gastro-esophageal reflux disease without esophagitis; J30.9 Allergic rhinitis, unspecified; G62.9 Polyneuropathy, unspecified; R48.0 Dyslexia and alexia; R33.9 Retention of urine, unspecified; K59.00 Constipation, unspecified; R53.1 Weakness
CPT/HCPCS: J1650

== ENCOUNTER → 2016-10-28 | Outpatient (CLI) | payer MEDICARE | END | disposition disaster alternative care site (69) | LOC: GRAD 13:27 | DX: Z47.89 Encounter for other orthopedic aftercare (principal); S72.002D Fracture of unspecified part of neck of left femur, subsequent encounter for closed fracture with routine healing; X58.XXXD Exposure to other specified factors, subsequent encounter ==

== ENCOUNTER → 2016-12-30 | Outpatient (CLI) | payer MEDICARE | END | disposition disaster alternative care site (69) | LOC: GRAD 12:24 | DX: M25.552 Pain in left hip (principal); Z96.642 Presence of left artificial hip joint ==